=== PATIENT | female | born 1955 ===

== ENCOUNTER → 2018-10-09 | Outpatient (CLI) | payer OTHER ==
[~2018-10-09] MED LIST: ETODOLAC400 MG PO; GABAPENTIN100 MG PO; HORIZANT300 MG PO; NEURONTIN300 MG PO
== END | disposition home or self-care (01) ==
LOC: NUCLEAR 09-27 10:00
DX: M81.0 Age-related osteoporosis without current pathological fracture (principal)

== ENCOUNTER 2020-11-03 12:40 | Outpatient (CLI) | payer OTHER | END 2020-11-03 12:41 | disposition home or self-care (01) | LOC: NUCLEAR 12:40 | PROVIDERS: ATTEND Internal Medicine Cardiovascular Disease | DX: M81.0 Age-related osteoporosis without current pathological fracture (principal); E55.9 Vitamin D deficiency, unspecified ==

== ENCOUNTER 2020-11-07 11:32 | Emergency (ER) | payer OTHER ==
[~2020-11-07] VITALS: Ht 160 cm; Wt 90.7 kg
[2020-11-07] MEDS ORDERED: HYZAAR 50-12.51 EACH (11:57)
[2020-11-07] MEDS ORDERED: MACROBID 100 M100 MG PO (14:46)
== END 2020-11-07 18:09 | disposition home or self-care (01) ==
LOC: ER 11:32
DX: N39.0 Urinary tract infection, site not specified (principal); R42 Dizziness and giddiness

== ENCOUNTER 2020-11-09 09:36 | Outpatient (CLI) | payer OTHER ==
[~2020-11-09 09:36] MED LIST changes: +HYZAAR 50-12.51 EACH; +MACROBID 100 M100 MG PO
== END 2020-11-09 09:48 | disposition home or self-care (01) ==
LOC: MRI 09:36
PROVIDERS: ATTEND Internal Medicine Cardiovascular Disease
DX: R42 Dizziness and giddiness (principal); R51.9 Headache, unspecified; R41.2 Retrograde amnesia; H53.2 Diplopia
CPT/HCPCS: 70553